=== PATIENT | female | born 1960 | race Asian ===

== ENCOUNTER 2022-09-17 21:58 | Emergency (ER) | payer OTHER ==
[~2022-09-17] VITALS: Ht 160 cm; Wt 69.9 kg
[2022-09-17 22:33] LABS: PLATELET COUNT 258 K/uL (152-353)
[2022-09-17 22:41] LABS: POTASSIUM 4.1 mmol/L (3.6-5.2)
[2022-09-18 00:07] VITALS: BP 165/91; TEMP 98
[2022-09-18] MEDS ORDERED: CHOLESTYRAMINE PO (09:49)
[2022-09-18] MEDS ORDERED: MUPIROCIN21 TOP (09:50)
[2022-09-18] MEDS ORDERED: SPIRONOLACT25 MG PO (09:50)
[2022-09-18] MEDS ORDERED: BUMETANIDE1 MG PO (09:51)
[2022-09-18] MEDS ORDERED: OMEGA 31000 MG PO (09:51)
[2022-09-18] MEDS ORDERED: GERITOL PO (09:52)
[2022-09-18] MEDS ORDERED: VITAMIN D2000 UNI2 PO (09:53)
[2022-09-18] MEDS ORDERED: VITAMIN D350000 UNIT PO (09:54)
[2022-09-18] MEDS ORDERED: PRAVASTATIN10 MG PO (09:55)
[2022-09-18] MEDS ORDERED: RISP0.25 PO (09:56)
[2022-09-18] MEDS ORDERED: DIVALPROEX250 M1 PO (09:57)
[2022-09-18] MEDS ORDERED: CEPH500C20 PO (09:58)
[2022-09-18] MEDS ORDERED: PAIN RELIEF EX500 M1 PO (09:59)
[2022-09-18] MEDS ORDERED: CARV3.12 PO (10:00)
== END 2022-09-18 00:15 | disposition still patient (30) ==
LOC: ED 21:58
PROVIDERS: Emergency Medicine Emergency Medical Services
DX: F03.911 Unspecified dementia, unspecified severity, with agitation (principal); Z11.52 Encounter for screening for COVID-19; Z04.6 Encounter for general psychiatric examination, requested by authority
CPT/HCPCS: 36415; 80053; 85027; 87635; 93005; 99283; U0003